=== PATIENT | male | born 1950 | race Caucasian/White ===

== ENCOUNTER 2017-05-08 22:00 | Emergency (ER) | payer BC, MEDICARE ==
[2017-05-08 22:06] VITALS: BP 147/69; PULSE 96; RESP 18; TEMP 96.8
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
== END 2017-05-08 22:40 | disposition home or self-care (01) ==
LOC: EC 22:00
DX: F41.9 Anxiety disorder, unspecified (principal); Z79.899 Other long term (current) drug therapy; Z88.0 Allergy status to penicillin
CPT/HCPCS: 99282

== ENCOUNTER → 2017-05-30 | Outpatient (CLI) | payer MEDICARE ==
--- NOTE | 2017-05-30 13:08 | EST ---
EXERCISE STRESS DATE OF SERVICE: 05/30/2017 AGE: 66 SEX: Male HT: 72" WT: 187 pounds PROTOCOL: Taj STAGE: II DURATION OF EXERCISE: 4:09 HEART RATE REST: 69 BLOOD PRESSURE REST: 129/70 MAXIMUM HEART RATE ACHIEVED: 135 MAXIMUM BLOOD PRESSURE: 146/57 85% MPHR: 132 100% MPHR: 155 METS: 5.8 INDICATIONS: Angina. CLINICAL INFORMATION: Baseline rhythm is a sinus mechanism, rate 69, normal axis and intervals. Normal electrocardiogram. Baseline blood pressure 129/70 mmHg. Patient exercised on Taj protocol for 4 minutes 9 seconds achieving a peak rate of 135 beats per minute, which is equal to 87% of maximum predicted heart rate. Blood pressure is 146/57 mmHg. The test was terminated secondary to fatigue. There is no chest pain. Electrocardiograph monitoring revealed no evidence of diagnostic ischemic ST deviation. Rare PVCs were noted. CONCLUSION: 1. Decreased exercise tolerance with occasional PVCs. 2. Normal electrocardiographic response to exercise with no evidence of exercise induced ischemia. MMODL / IJN: [id number] /
== END | disposition home or self-care (01) ==
LOC: RADNMMAIN 11:44
PROVIDERS: ATTEND Internal Medicine
DX: I95.9 Hypotension, unspecified (principal)
CPT/HCPCS: 93017

== ENCOUNTER 2019-11-04 13:51 | Emergency (ER) | payer MEDICARE ==
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
[2019-11-04 14:51] LABS: Amphetamine Screen,Urine Not Detected (NotDetected); Barbiturate Screen,Urine Not Detected (NotDetected); Benzodiazepines Screen,Urine Not Detected (NotDetected); Cocaine Screen,Urine Not Detected (NotDetected); Methadone Screen, Urine Not Detected (NotDetected); Opiate Screen,Urine Not Detected (NotDetected); Oxycodone Screen, Urine Not Detected (NotDetected); Phencyclidine Screen,Urine Not Detected (NotDetected); Tricyclic Antidepressant,Urine Not Detected (NotDetected); Urn Cannabinoid Scrn Not Detected (NotDetected)
[2019-11-04 20:49] LABS: HCT 46.4 % (39.0-53.0); HGB 15.1 gm/dL (13.0-17.5); MCH 31.2 pg (25.0-35.0); MCHC 32.5 g/dL (31.0-37.0); MCV 95.8 fL (80.0-100.0); Platelet Count 193 k/uL (150-450); RBC 4.85 m/uL (4.30-5.90); RDW 12.7 % (11.5-15.5)
[2019-11-04 21:12] LABS: Albumin 4.4 g/dL (3.5-5.0); Calcium 9.4 mg/dL (8.4-10.2); Total Bilirubin 0.5 mg/dL (0.2-1.3)
[2019-11-05] MEDS ORDERED: LORazepam 1 MG TAB PO STA (00:21)
[2019-11-05 06:31] VITALS: TEMP 96.8
[2019-11-05 07:09] LABS: Appearance,Urine Clear (Clear); Bilirubin,Urine Negative (Negative); Blood,Urine Negative (Negative); Color,Urine Light Yellow; Glucose,Urine (UA) Negative (Negative); Ketones,Urine Negative (Negative); Leukocyte Esterase,Urine Negative (Negative); Nitrite,Urine Negative (Negative); Protein,Urine Negative (Negative); Specific Gravity,Urine 1.012 (1.001-1.035); Urobilinogen,Urine <2.0 mg/dL (<2.0)
[2019-11-05 13:20] VITALS: BP 141/79; PULSE 89; RESP 18
== END 2019-11-05 13:19 | disposition other institution (70) ==
LOC: EC 13:51
DX: Z03.818 Encounter for observation for suspected exposure to other biological agents ruled out (principal); F32.9 Major depressive disorder, single episode, unspecified; R45.851 Suicidal ideations; F41.9 Anxiety disorder, unspecified; Z79.899 Other long term (current) drug therapy; Z88.0 Allergy status to penicillin
CPT/HCPCS: 99285; 82075; 36415; 80053; 85027; 81003; 80306; U0003